=== PATIENT | male | born 1950 | race Caucasian/White ===

== ENCOUNTER → 2023-09-17 09:58 | Outpatient (REF) | payer MEDICARE, OTHER, SELFPAY ==
[2023-09-17 12:16] LABS: PSA, Total - Diagnostic < 0.06 ng/ml (0.0-4.0)
== END ==
LOC: REG 09:58
PROVIDERS: ATTENDING PHYSICIAN Radiology Radiation Oncology
DX: C61 Malignant neoplasm of prostate (principal)
CPT/HCPCS: 36415; 84153

== ENCOUNTER → 2023-09-18 09:20 | Outpatient (REF) | payer MEDICARE, OTHER, SELFPAY ==
[2023-09-18 16:55] LABS: % Basophils 1.5 % (0-2); % Eosinophils 21.1 % (0-6); % Immature Granulocytes 1.9 % (0-0.5); % Lymphocytes 9.5 % (20.5-51.1); Absolute Basophils 0.1 10^3/uL (0-0.2); Absolute Eosinophils 1.4 10^3/uL (0-0.7); Absolute Immature Granulocytes 0.1 10^3/uL (0-0.05); Absolute Lymphocytes 0.6 10^3/uL (1.2-3.4); Absolute Monocytes 0.7 10^3/uL (0.1-0.6); Absolute Neutrophils 3.8 10^3/uL (1.4-6.5); Hematocrit 35.5 % (39.0-52.0); Hemoglobin 11.7 g/dL (13.0-18.0); Mean Corpuscular Hgb 29.8 pg (27.0-31.0); Mean Corpuscular Volume 90.6 fL (80.0-94.0); Mean Platelet Volume 8.6 fL (7.4-10.4); Nucleated Red Blood Cells % 0 % (-); Platelet Count 191 10^3/uL (130-400); Red Blood Cell Count 3.92 10^6/uL (4.70-6.10); Red Cell Dist. Width 15.2 % (11.5-14.5); White Blood Cell Count 6.8 10^3/uL (4.8-10.8)
[2023-09-18 17:06] LABS: ALT (SGPT) 25 U/L (0-50); AST (SGOT) 25 U/L (17-59); Albumin 4.2 g/dl (3.5-5.0); Alkaline Phosphatase 76 U/L (38-126); Blood Urea Nitrogen 25 mg/dl (9-20); Carbon Dioxide 25 mmol/L (22-30); Chloride 105 mmol/L (98-107); Glucose 111 mg/dl (70-99); HDL Cholesterol 49 mg/dl; LDL Cholesterol, Calculated 74 mg/dl; Potassium 4.7 mmol/L (3.5-5.1); Sodium 135 mmol/L (135-145); Total Bilirubin 0.3 mg/dl (0.2-1.3); Total Cholesterol 159 mg/dl (50-199); Total Protein 6.7 g/dl (6.3-8.2); Triglyceride 180 mg/dl (10-149); Very Low Density Lipoprotein 36 mg/dl (0-30); eGFR > 60.00
[2023-09-18 17:33] LABS: Microalbumin, Random Urine < 0.6 mg/dl (0.6-1.7)
[2023-09-18 17:37] LABS: TSH 0.62 uIU/ml (0.47-4.68)
[2023-09-19 08:50] LABS: Glycohemoglobin (HgbA1c) 6.2 % (4.0-5.6)
== END ==
LOC: CLAB 09:20
PROVIDERS: ATTENDING PHYSICIAN Family Medicine
DX: E11.9 Type 2 diabetes mellitus without complications (principal); I10 Essential (primary) hypertension; E78.2 Mixed hyperlipidemia; E03.9 Hypothyroidism, unspecified; C61 Malignant neoplasm of prostate
CPT/HCPCS: 36415; 80053; 80061; 82043; 83036; 84443; 85025

== ENCOUNTER → 2023-10-15 10:39 | Outpatient (REF) | payer MEDICARE, OTHER, SELFPAY ==
[2023-10-15 12:27] LABS: % Basophils 1.4 % (0-2); % Eosinophils 15.7 % (0-6); % Lymphocytes 14.3 % (20.5-51.1); % Monocytes 10.5 % (1.7-9.3); % Neutrophils 57.1 % (42.2-75.2); Absolute Basophils 0.1 10^3/uL (0-0.2); Absolute Eosinophils 0.9 10^3/uL (0-0.7); Absolute Immature Granulocytes 0.1 10^3/uL (0-0.05); Absolute Lymphocytes 0.8 10^3/uL (1.2-3.4); Absolute Monocytes 0.6 10^3/uL (0.1-0.6); Absolute Neutrophils 3.3 10^3/uL (1.4-6.5); Hematocrit 34.3 % (39.0-52.0); Hemoglobin 11.5 g/dL (13.0-18.0); Mean Corp Hgb Conc. 33.5 g/dL (33.0-37.0); Mean Corpuscular Hgb 29.1 pg (27.0-31.0); Mean Corpuscular Volume 86.8 fL (80.0-94.0); Mean Platelet Volume 8.7 fL (7.4-10.4); Nucleated Red Blood Cells % 0 % (-); Platelet Count 182 10^3/uL (130-400); Red Blood Cell Count 3.95 10^6/uL (4.70-6.10); White Blood Cell Count 5.8 10^3/uL (4.8-10.8)
== END ==
LOC: REG 10:39
PROVIDERS: ATTENDING PHYSICIAN Family Medicine
DX: I10 Essential (primary) hypertension (principal); R79.89 Other specified abnormal findings of blood chemistry
CPT/HCPCS: 36415; 85025

== ENCOUNTER → 2023-11-19 14:24 | Outpatient (REF) | payer MEDICARE, OTHER, SELFPAY | LOC: MRI 3T 14:24 | PROVIDERS: ATTENDING PHYSICIAN Anesthesiology; FAMILY PHYSICIAN Family Medicine | DX: M54.16 Radiculopathy, lumbar region (principal) | CPT/HCPCS: 72148 ==

== ENCOUNTER → 2023-12-25 06:58 | Outpatient (REF) | payer MEDICARE, OTHER, SELFPAY ==
[2023-12-25 07:30] VITALS: BP 139/65; BP_SYST 78
[2023-12-25 07:38] LABS: INR 0.99; PT 13.1 Sec (11.4-14.6)
[2023-12-25 07:41] LABS: % Basophils 1.5 % (0-2); % Eosinophils 5.5 % (0-6); % Lymphocytes 13.8 % (20.5-51.1); % Neutrophils 66.2 % (42.2-75.2); Absolute Basophils 0.1 10^3/uL (0-0.2); Absolute Eosinophils 0.2 10^3/uL (0-0.7); Absolute Immature Granulocytes 0.1 10^3/uL (0-0.05); Absolute Lymphocytes 0.6 10^3/uL (1.2-3.4); Absolute Monocytes 0.4 10^3/uL (0.1-0.6); Absolute Neutrophils 2.6 10^3/uL (1.4-6.5); Hematocrit 34.7 % (39.0-52.0); Hemoglobin 11.7 g/dL (13.0-18.0); Mean Corp Hgb Conc. 33.7 g/dL (33.0-37.0); Mean Corpuscular Hgb 29.3 pg (27.0-31.0); Mean Corpuscular Volume 86.8 fL (80.0-94.0); Mean Platelet Volume 8.7 fL (7.4-10.4); Nucleated Red Blood Cells % 0 % (-); Platelet Count 163 10^3/uL (130-400); Red Cell Dist. Width 15.4 % (11.5-14.5)
[2023-12-25] MEDS: FLUSH (NSS) 1 FLUSH IV (08:05)
[2023-12-25] MEDS: NSS (PRESERVATIVE FREE) 0.25 ML IV (08:05)
[2023-12-25] MEDS: ATIVAN 0.5 MG IV (08:06)
[2023-12-25 08:58] VITALS: BP 126/83
== END ==
LOC: RADI 06:58
PROVIDERS: ATTENDING PHYSICIAN Internal Medicine Hematology & Oncology; FAMILY PHYSICIAN Family Medicine
DX: D46.9 Myelodysplastic syndrome, unspecified (principal); D68.8 Other specified coagulation defects; C61 Malignant neoplasm of prostate
CPT/HCPCS: 88305; 88311; 88312; 36415; 38222; 77012; 85025; 85610; 88313; 88341; 88342

== ENCOUNTER → 2024-02-23 15:48 | Outpatient (REF) | payer MEDICARE, OTHER, SELFPAY | LOC: RAD 15:48 | PROVIDERS: ATTENDING PHYSICIAN Family Medicine; FAMILY PHYSICIAN Family Medicine | DX: R60.0 Localized edema (principal) | CPT/HCPCS: 93971 ==

== ENCOUNTER → 2024-02-26 13:56 | Outpatient (REF) | payer MEDICARE, OTHER, SELFPAY | LOC: RAD 13:56 | PROVIDERS: ATTENDING PHYSICIAN Family Medicine; FAMILY PHYSICIAN Family Medicine | DX: M54.6 Pain in thoracic spine (principal); R07.81 Pleurodynia | CPT/HCPCS: 71111; 72072 ==

== ENCOUNTER → 2024-04-26 12:57 | Outpatient (REF) | payer MEDICARE, OTHER, SELFPAY ==
[2024-04-26 13:56] LABS: % Basophils 1.3 % (0-2); % Eosinophils 3.7 % (0-6); % Immature Granulocytes 3.1 % (0-0.5); % Lymphocytes 10.5 % (20.5-51.1); % Monocytes 9.5 % (1.7-9.3); % Neutrophils 71.9 % (42.2-75.2); Absolute Basophils 0.1 10^3/uL (0-0.2); Absolute Eosinophils 0.3 10^3/uL (0-0.7); Absolute Immature Granulocytes 0.3 10^3/uL (0-0.05); Absolute Lymphocytes 0.9 10^3/uL (1.2-3.4); Absolute Monocytes 0.8 10^3/uL (0.1-0.6); Absolute Neutrophils 6.1 10^3/uL (1.4-6.5); Hematocrit 35.9 % (39.0-52.0); Hemoglobin 11.5 g/dL (13.0-18.0); Mean Corpuscular Hgb 27.5 pg (27.0-31.0); Mean Corpuscular Volume 85.9 fL (80.0-94.0); Mean Platelet Volume 8.9 fL (7.4-10.4); Nucleated Red Blood Cells % 0 % (-); Platelet Count 241 10^3/uL (130-400); Red Blood Cell Count 4.18 10^6/uL (4.70-6.10); Red Cell Dist. Width 15.8 % (11.5-14.5); White Blood Cell Count 8.5 10^3/uL (4.8-10.8)
== END ==
LOC: REG 12:57
PROVIDERS: ATTENDING PHYSICIAN Internal Medicine Hematology & Oncology; FAMILY PHYSICIAN Family Medicine
DX: C61 Malignant neoplasm of prostate (principal); D64.9 Anemia, unspecified
CPT/HCPCS: 36415; 85025

== ENCOUNTER → 2024-05-31 10:43 | Outpatient (REF) | payer MEDICARE, OTHER, SELFPAY | LOC: RAD 10:43 | PROVIDERS: ATTENDING PHYSICIAN Family Medicine; FAMILY PHYSICIAN Family Medicine | DX: I82.4Z1 Acute embolism and thrombosis of unspecified deep veins of right distal lower extremity (principal); R60.0 Localized edema | CPT/HCPCS: 93971 ==

== ENCOUNTER → 2024-07-27 08:46 | Outpatient (REF) | payer MEDICARE, OTHER, SELFPAY ==
[2024-07-27 09:51] LABS: % Basophils 0.8 % (0-2); % Eosinophils 4.1 % (0-6); % Immature Granulocytes 2.4 % (0-0.5); % Monocytes 7.4 % (1.7-9.3); % Neutrophils 74.3 % (42.2-75.2); Absolute Basophils 0.1 10^3/uL (0-0.2); Absolute Eosinophils 0.3 10^3/uL (0-0.7); Absolute Immature Granulocytes 0.2 10^3/uL (0-0.05); Absolute Lymphocytes 0.7 10^3/uL (1.2-3.4); Absolute Monocytes 0.5 10^3/uL (0.1-0.6); Hematocrit 34.5 % (39.0-52.0); Hemoglobin 11.3 g/dL (13.0-18.0); Mean Corp Hgb Conc. 32.8 g/dL (33.0-37.0); Mean Corpuscular Hgb 27.1 pg (27.0-31.0); Mean Corpuscular Volume 82.7 fL (80.0-94.0); Mean Platelet Volume 8.5 fL (7.4-10.4); Nucleated Red Blood Cells % 0 % (-); Platelet Count 227 10^3/uL (130-400); Red Blood Cell Count 4.17 10^6/uL (4.70-6.10); Red Cell Dist. Width 16.2 % (11.5-14.5); White Blood Cell Count 6.7 10^3/uL (4.8-10.8)
== END ==
LOC: REG 08:46
PROVIDERS: ATTENDING PHYSICIAN Internal Medicine Hematology & Oncology; FAMILY PHYSICIAN Family Medicine
DX: C61 Malignant neoplasm of prostate (principal); D64.9 Anemia, unspecified
CPT/HCPCS: 36415; 85025

== ENCOUNTER → 2024-09-20 09:25 | Outpatient (REF) | payer MEDICARE, OTHER, SELFPAY ==
[2024-09-20 11:40] LABS: PSA, Total - Diagnostic < 0.06 ng/ml (0.0-4.0)
[2024-09-22 08:42] LABS: % Free Testosterone <1.4 % (1.6-2.9); Free Testosterone <1 pg/mL (47-244); Sex Hormone Binding Globulin 42 nmol/L (19-76); Total Testosterone <3 ng/dL (300-720)
== END ==
LOC: REG 09:25
PROVIDERS: ATTENDING PHYSICIAN Family Medicine Geriatric Medicine
DX: C61 Malignant neoplasm of prostate (principal); Z79.818 Long term (current) use of other agents affecting estrogen receptors and estrogen levels
CPT/HCPCS: 36415; 84153; 84270; 84402; 84403

== ENCOUNTER → 2024-09-27 09:42 | Outpatient (REF) | payer MEDICARE, OTHER, SELFPAY ==
[2024-09-27 10:50] LABS: % Basophils 1.5 % (0-2); % Eosinophils 4.6 % (0-6); % Immature Granulocytes 1.5 % (0-0.5); % Lymphocytes 11.4 % (20.5-51.1); % Monocytes 9.6 % (1.7-9.3); % Neutrophils 71.4 % (42.2-75.2); Absolute Basophils 0.1 10^3/uL (0-0.2); Absolute Eosinophils 0.4 10^3/uL (0-0.7); Absolute Immature Granulocytes 0.1 10^3/uL (0-0.05); Absolute Lymphocytes 0.9 10^3/uL (1.2-3.4); Absolute Monocytes 0.8 10^3/uL (0.1-0.6); Absolute Neutrophils 5.5 10^3/uL (1.4-6.5); Hematocrit 37.6 % (39.0-52.0); Hemoglobin 12.3 g/dL (13.0-18.0); Mean Corp Hgb Conc. 32.7 g/dL (33.0-37.0); Mean Corpuscular Hgb 27.6 pg (27.0-31.0); Mean Corpuscular Volume 84.3 fL (80.0-94.0); Mean Platelet Volume 8.4 fL (7.4-10.4); Nucleated Red Blood Cells % 0 % (-); Platelet Count 268 10^3/uL (130-400); Red Blood Cell Count 4.46 10^6/uL (4.70-6.10); Red Cell Dist. Width 16.3 % (11.5-14.5); White Blood Cell Count 7.8 10^3/uL (4.8-10.8)
[2024-09-27 15:47] LABS: Blood Urea Nitrogen 35 mg/dl (9-20); Calcium 10.2 mg/dl (8.4-10.2); Carbon Dioxide 23 mmol/L (22-30); Chloride 105 mmol/L (98-107); Glucose 112 mg/dl (70-99); Potassium 5.3 mmol/L (3.5-5.1); Sodium 140 mmol/L (135-145); eGFR > 60.00
== END ==
LOC: RCS 09:42
PROVIDERS: ATTENDING PHYSICIAN Orthopaedic Surgery; FAMILY PHYSICIAN Family Medicine; REFERRING PHYSICIAN Internal Medicine Hematology & Oncology
DX: C61 Malignant neoplasm of prostate (principal); D64.9 Anemia, unspecified; Z01.818 Encounter for other preprocedural examination
CPT/HCPCS: 36415; 80048; 85025; 93005

== ENCOUNTER → 2024-12-21 10:45 | Outpatient (REF) | payer MEDICARE, OTHER, SELFPAY ==
[2024-12-21 12:03] LABS: Hematocrit 33.7 % (39.0-52.0); Hemoglobin 10.9 g/dL (13.0-18.0); Mean Corp Hgb Conc. 32.3 g/dL (33.0-37.0); Mean Corpuscular Volume 83.6 fL (80.0-94.0); Nucleated Red Blood Cells % 0 % (-); Platelet Count 303 10^3/uL (130-400); Red Cell Dist. Width 16.0 % (11.5-14.5)
== END ==
LOC: REG 10:45
PROVIDERS: ATTENDING PHYSICIAN Internal Medicine Hematology & Oncology; FAMILY PHYSICIAN Family Medicine
DX: C61 Malignant neoplasm of prostate (principal); D64.9 Anemia, unspecified
CPT/HCPCS: 36415; 85025

== ENCOUNTER → 2024-12-28 10:32 | Outpatient (REF) | payer MEDICARE, OTHER, SELFPAY ==
[2024-12-28 13:58] LABS: PSA, Total - Diagnostic < 0.06 ng/ml (0.0-4.0)
== END ==
LOC: REG 10:32
PROVIDERS: ATTENDING PHYSICIAN Family Medicine Geriatric Medicine; FAMILY PHYSICIAN Family Medicine
DX: Z12.5 Encounter for screening for malignant neoplasm of prostate (principal); C61 Malignant neoplasm of prostate; Z79.818 Long term (current) use of other agents affecting estrogen receptors and estrogen levels
CPT/HCPCS: 36415; 84153; 84270; 84402; 84403

== ENCOUNTER → 2025-02-08 14:09 | Outpatient (REF) | payer MEDICARE, OTHER, SELFPAY | LOC: RAD 14:09 | PROVIDERS: ATTENDING PHYSICIAN Family Medicine Geriatric Medicine; FAMILY PHYSICIAN Family Medicine | DX: Z91.89 Other specified personal risk factors, not elsewhere classified (principal); Z79.818 Long term (current) use of other agents affecting estrogen receptors and estrogen levels; R79.89 Other specified abnormal findings of blood chemistry | CPT/HCPCS: 77080 ==

== ENCOUNTER → 2025-03-23 07:39 | Outpatient (REF) | payer MEDICARE, OTHER, SELFPAY ==
[2025-03-23 09:23] LABS: Hematocrit 35.6 % (39.0-52.0); Hemoglobin 11.2 g/dL (13.0-18.0); Mean Corp Hgb Conc. 31.5 g/dL (33.0-37.0); Mean Corpuscular Volume 86.0 fL (80.0-94.0); Nucleated Red Blood Cells % 0 % (-); Platelet Count 319 10^3/uL (130-400); Red Cell Dist. Width 16.7 % (11.5-14.5)
== END ==
LOC: REG 07:39
PROVIDERS: ATTENDING PHYSICIAN Internal Medicine Hematology & Oncology; FAMILY PHYSICIAN Family Medicine
DX: C61 Malignant neoplasm of prostate (principal); D64.9 Anemia, unspecified
CPT/HCPCS: 36415; 85025